=== PATIENT | female | born 1945 | race Caucasian/White ===

== ENCOUNTER 2019-11-01 05:47 | Inpatient (IN) ==
--- NOTE | 2019-10-17 09:23 | PAT Medication Instructions ---
Medication Instructions Date of Service October 17, 2019 Home Medications amlodipine [Norvasc] 25 mg PO QAM aspirin 325 mg PO HS atorvastatin [Lipitor] 40 mg PO QAM bupropion HCl [Wellbutrin XL] 150 mg PO QAM carvedilol phosphate [Coreg CR] 10 mg PO QAM clopidogrel [Plavix] 75 mg PO QAM esomeprazole magnesium [Nexium] 40 mg PO QPM glipizide [Glucotrol XL] 5 mg PO QAM isosorbide mononitrate 30 mg PO QAM lorazepam 1 mg PO UD PRN metformin 1,000 mg PO BID sitagliptin [Januvia] 100 mg PO QAM valsartan-hydrochlorothiazide [Diovan HCT] 1 tab PO QAM ASK your prescriber and surgeon aspirin 325 mg PO HS clopidogrel [Plavix] 75 mg PO QAM DO NOT take the morning of surgery glipizide [Glucotrol XL] 5 mg PO QAM metformin 1,000 mg PO BID sitagliptin [Januvia] 100 mg PO QAM valsartan-hydrochlorothiazide [Diovan HCT] 1 tab PO QAM Take morning of surgery With a small sip of water, OTHERWISE NOTHING TO EAT OR DRINK AFTER MIDNIGHT: amlodipine [Norvasc] 25 mg PO QAM atorvastatin [Lipitor] 40 mg PO QAM bupropion HCl [Wellbutrin XL] 150 mg PO QAM carvedilol phosphate [Coreg CR] 10 mg PO QAM isosorbide mononitrate 30 mg PO QAM lorazepam 1 mg PO UD PRN (if needed) Take evening before surgery esomeprazole magnesium [Nexium] 40 mg PO QPM lorazepam 1 mg PO UD PRN (if needed) metformin 1,000 mg PO BID Other Notes If you have any questions please call us at [phone] or [phone] or [phone] or [phone]
--- NOTE | 2019-10-17 12:02 | Anesthesiology Consultation ---
Date of Service October 17, 2019 Assessment & Plan (1) Encounter for pre-operative examination: - New onset a. fib: per patient, new onset a. fib diagnosed at cardiology appointment 10/16/19. Plavix was discontinued and Eliquis 5mg BID initiated. She states that cardiology has arranged for stress echo and holter monitor to be done prior to surgery. Awaiting cardiology office visit and EKG (Dr. Ascencio). Also awaiting stress echo and holter monitor scheduled for 10/22. Once cardiac testing completed, will need final cardiology preop recommendations. - ASA/plavix instructions: per surgeon/cardiology - Check [facility] AM DOS Chart Review Chart Review: Patient seen in Pre Admission Testing Teaching & Discussion Pre-Anesthesia Teaching/Discussion Notes: Instructed NPO after midnight before surgery,except medications with 15 cc of water. Medication instructions pro vided according to the PAT guidelines. History Surgery Operation Date: 11/01/19 07:45 Proposed Procedures p L4-S1 Decompression and Fusion, Spinal Cord Monitoring - Tavon Booth, Height/Weight Height: 5 ft 3 in Weight: 114.5 kg Allergies Allergy/AdvReac Type Severity Reaction Status Date / Time paroxetine [From Paxil] Allergy Unknown TREMORS Verified 10/10/19 10:36 Medications Home Medications Medication Instructions Recorded Confirmed Last Taken amlodipine [Norvasc] 25 mg PO QAM 10/10/19 10/10/19 Unknown aspirin 325 mg PO HS 10/10/19 10/10/19 Unknown atorvastatin [Lipitor] 40 mg PO QAM 10/10/19 10/10/19 Unknown bupropion HCl [Wellbutrin XL] 150 mg PO QAM 10/10/19 10/10/19 Unknown carvedilol phosphate [Coreg CR] 10 mg PO QAM 10/10/19 10/10/19 Unknown esomeprazole magnesium [Nexium] 40 mg PO QPM 10/10/19 10/10/19 Unknown glipizide [Glucotrol XL] 5 mg PO QAM 10/10/19 10/10/19 Unknown isosorbide mononitrate 30 mg PO QAM 10/10/19 10/10/19 Unknown lorazepam 1 mg PO UD PRN 10/10/19 10/10/19 Unknown metformin 1,000 mg PO BID 10/10/19 10/10/19 Unknown sitagliptin [Januvia] 100 mg PO QAM 10/10/19 10/10/19 Unknown valsartan-hydrochlorothiazide 1 tab PO QAM 10/10/19 10/10/19 Unknown [Diovan HCT] apixaban [Eliquis] 5 mg PO BID 10/17/19 10/17/19 Unknown Past Medical History Medical History (Updated 10/17/19 @ 14:13 by Leilani Smith) Acid reflux Anemia Anxiety Atrial fibrillation recent dx 09/2019 CAD (coronary artery disease) stent x 1 (2011) Diabetes Herniated disc History of blood clots following x2 (LEs) HTN (hypertension) Hyperlipidemia Morbid obesity Sleep apnea CPAP Spinal stenosis Exercise / Class Metabolic Activity III < 4 Walking/Shop/Light housework Past Surgical History Surgical History History of arthroscopy of left knee History of arthroscopy of left shoulder History of arthroscopy of right knee History of arthroscopy of right shoulder History of cardiac cath stent x1 (2011) History of cholecystectomy History of colonoscopy History of hysterectomy History of open reduction and internal fixation (ORIF) procedure R ANKLE (?SUBSEQUENT HARDWARE REMOVAL) Past Anesthesia History No Hx of Anesthesia Complications and No Family Hx of Anesthesia Complications History of PONV No Hx of PONV and No Hx of Motion Sickness Social History Smoking Status: Never smoker Do You Dip or Chew Tobacco: No Hx Alcohol Use: No Hx Substance Use: No substance use type: does not use Review of Systems Patient denies chest pain, shortness of breath, cough, wheezing, palpitations. Physical Exam Vital Signs VITALS BP 113/74 P 87 TEMP 97.9 SP02 95%RA RESP 16 PHYSICAL Full neck and c-spine range of motion. Full TMJ range of motion. TMD 3 finger breaths Mallampati Score 2 Dentition: full upper plate Lungs: clear throughout to auscultation Cardiac: regular rate, irregular rhythm, I/ systolic murmur, distant heart sounds Spine: kyphosis Carotid arteries: negative bruit Extremities: no edema Testing Laboratory Results 10/17/19 12:28 10/17/19 12:28 PT 11.5 Seconds (9.0-12.0) 10/17/19 12:28 INR 1.1 (0.9-1.1) 10/17/19 12:28 APTT 27.3 Seconds (21.0-31.0) 10/17/19 12:28 Hemoglobin A1c 7.4 % (4.5-5.6) H 10/17/19 12: Urine Color Yellow 10/17/19 12: Urine Appearance Clear (Clear) 10/17/19 12: Urine pH 5.0 (4.5-7.5) 10/17/19 12: Ur Specific [place] 1.013 (1.000-1.030) 10/17/19 12: Urine Protein Negative (Negative) 10/17/19 12: Urine Glucose (UA) Negative (Negative) 10/17/19 12: Urine Ketones Negative (Negative) 10/17/19 12: Urine Nitrite Negative (Negative) 10/17/19 12: Ur Leukocyte Esterase Negative (Negative) 10/17/19 12:28 Blood Type A Positive 10/17/19 12: Antibody Screen POSITIVE A 10/17/19 12: *Positive antibodies- per Katia at blood bank (aware/don't need anything further from PAT) Chest X-Ray Date: 10/17/19 The heart is enlarged noting atherosclerotic calcification of the thoracic aorta. The pulmonary vasculature is noncongested. Chronic interstitial thickening is similar to previous. Scarring/atelectasis is noted at the lung bases. Degenerative change, DISH, and hyperkyphosis are noted in the thoracic spine. IMPRESSION: Cardiomegaly with no active disease in the chest.
--- NOTE | 2019-10-17 12:58 | XRay Report ---
TWO VIEW CHEST CLINICAL HISTORY: Preoperative examination. FINDINGS: PA and lateral chest radiographs are obtained. No prior studies are available for compariso n at the time of dictation. The heart is enlarged noting atherosclerotic calcification of the thoraci c aorta. The pulmonary vasculature is noncongested. Chronic interstitial thickening is similar to pre vious. Scarring/atelectasis is noted at the lung bases. No airspace consolidation or pleural effusion is identified. There is no pneumothorax. The skeletal structures are osteopenic. The bony thorax viviana ears intact. Degenerative change, DISH, and hyperkyphosis are noted in the thoracic spine IMPRESSION: Cardiomegaly with no active disease in the chest. ACT 112: Negative or not required by law. Electronically signed by: Ghanshyam Woo M.D. 10/17/2019 12:57 PM
[2019-10-17 13:26] LABS: Appearance Urine Clear (Clear); Bilirubin Urine Negative (Negative); Blood Urine Negative (Negative); Color Urine Yellow; Glucose Urine UA Negative (Negative); Ketones Urine Negative (Negative); Leukocyte Esterase Urine Negative (Negative); Nitrite Urine Negative (Negative); Protein Urine Negative (Negative); Specific Gravity Urine 1.013 (1.000-1.030); Urobilinogen Urine Negative (Negative)
[2019-10-17 13:29] LABS: Basophils # (auto) 0.02 K/uL (0-0.2); Basophils % (auto) 0.3 %; Eosinophils # (auto) 0.12 K/uL (0-0.5); Eosinophils % (auto) 1.8 %; Hematocrit (blood only) 34.1 % (37-47); Immature Granulocytes # (auto) 0.02 K/uL (0.00-0.02); Immature Granulocytes % (auto) 0.3 %; Lymphocytes % (auto) 27.7 %; Mean Corpuscular Hemoglobin 28.3 pg (25-34); Mean Corpuscular Hgb Conc 32.3 g/dL (32-36); Mean Corpuscular Volume 87.7 fL (80-100); Mean Platelet Volume 11.8 fL (7.4-10.4); Monocytes # (auto) 0.55 K/uL (0.11-0.59); Monocytes % (auto) 8.5 %; Neutrophils # (auto) 3.98 K/uL (1.4-6.5); Neutrophils % (auto) 61.4 %; Platelet Count 253 K/uL (130-400); RDW Coefficient of Variation 14.8 % (11.5-14.5); RDW Standard Deviation 47.3 fL (36.4-46.3); Red Blood Count 3.89 M/uL (4.2-5.4); White Blood Count 6.49 K/uL (4.8-10.8)
[2019-10-17 13:35] LABS: BUN Creatinine Ratio 15.2 (10-20); Calcium 9.3 mg/dl (8.5-10.1); Creatinine Clr Calc Pharmacy 52.8 ml/min; Est GFR (African American) 54.9; Est GFR (Non-African American) 47.3; Potassium 4.1 mmol/L (3.5-5.1)
[2019-10-17 13:38] LABS: INR 1.1 (0.9-1.1); Partial Thromboplastin Time 27.3 Seconds (21.0-31.0); Prothrombin Time 11.5 Seconds (9.0-12.0)
[2019-10-17 14:01] LABS: Estimated Average Glucose 166 mg/dl; Hemoglobin A1C 7.4 % (4.5-5.6)
[2019-11-01] MEDS ORDERED: LR 15ML/HR IV SCH (06:00)
[2019-11-01] MEDS ORDERED: CEFAZOLIN 2000MG 2,000 MG/15 ML SYR IV SCH (06:00)
[2019-11-01] MEDS ORDERED: GABAPENTIN 300 MG CAP PO SCH (06:00)
[2019-11-01] MEDS ORDERED: CeleBREX 200 MG CAP PO SCH (06:00)
[2019-11-01] MEDS ORDERED: ACETAMINOPHEN 500 MG TAB PO SCH (06:00)
[2019-11-01] MEDS ORDERED: BUPIVACAINE/EPINEPHRINE 0.5% MPF 1:200,000 10 ML VIAL ONE (07:10)
[2019-11-01] MEDS ORDERED: BACITRACIN INJ 50,000 UNIT VIAL ONE (07:10)
[2019-11-01] MEDS ORDERED: fentaNYL citrate 100 MCG/2 ML VIAL ONE ×2 (07:14→10:06)
[2019-11-01] MEDS ORDERED: HYDROmorphone INJ 2 MG/ML SYR/VIAL ONE (07:15)
--- NOTE | 2019-11-01 07:16 | History & Physical Bridge Note ---
Date of Service November 01, 2019 History & Physical Bridge Note I have examined the patient, reviewed the History & Physical and in the interval since the performance of the History & Physical I have noted the following changes of clinical significance: no changes noted
--- NOTE | 2019-11-01 07:17 | History & Physical Report ---
Date of Service November 01, 2019 Assessment & Plan (1) Neurogenic claudication due to lumbar spinal stenosis: L4-S1 decompression fusion Present on Admission?: Yes History of Present Illness Chief Complaint: Back and bilateral leg pain Primary Care Provider: Jessica Gaming MD This is a 74-year-old female presents with chronic persistent back and bilateral leg pain. After failing extensive course of nonoperative care she is here for surgical invention. Allergies Allergy/AdvReac Type Severity Reaction Status Date / Time paroxetine [From Paxil] Allergy Unknown TREMORS Verified 11/01/19 06:38 Home Medications Home Medications Medication Instructions Recorded Confirmed Type amlodipine [Norvasc] 25 mg PO QAM 10/10/19 11/01/19 History aspirin 325 mg PO HS 10/10/19 11/01/19 History atorvastatin [Lipitor] 40 mg PO QAM 10/10/19 11/01/19 History bupropion HCl [Wellbutrin XL] 150 mg PO QAM 10/10/19 11/01/19 History carvedilol phosphate [Coreg CR] 10 mg PO QAM 10/10/19 11/01/19 History esomeprazole magnesium [Nexium] 40 mg PO QPM 10/10/19 11/01/19 History glipizide [Glucotrol XL] 5 mg PO QAM 10/10/19 11/01/19 History isosorbide mononitrate 30 mg PO QAM 10/10/19 11/01/19 History lorazepam 0.5 mg PO UD PRN 10/10/19 11/01/19 History metformin 1,000 mg PO BID 10/10/19 11/01/19 History sitagliptin [Januvia] 100 mg PO QAM 10/10/19 11/01/19 History valsartan-hydrochlorothiazide 1 tab PO QAM 10/10/19 11/01/19 History [Diovan HCT] apixaban [Eliquis] 5 mg PO BID 10/17/19 11/01/19 History ranolazine [Ranexa] 500 mg PO BID 11/01/19 11/01/19 History Past Med/Surg History Social History Preferred Language: Sinhala Communication Ability: Effective Food Beverage Server Required: No Beliefs That Will Affect Care: None Current Living Situation: Spouse Other Information That Helps Us Care for You: No Feels Safe at Home: Yes Smoking Status: Never smoker Do You Dip or Chew Tobacco: No ; Hx Alcohol Use: No Hx Substance Use: No Physical Exam Physical Exam: Patient is alert and oriented neurologically intact. Results & Data Vital Signs (Past 12 Hours) Vital Signs Temp Pulse Resp BP Pulse Ox 11/01/19 06:59 36.9 C 86 18 140/74 96
[2019-11-01] MEDS ORDERED: ALBUMIN HUMAN 5% 12.5 GM/250 ML VIAL IV ONE ×2 (07:22→09:07)
[2019-11-01] MEDS ORDERED: ONDANSETRON INJ 2 MG/ML 2 ML VIAL ONE (08:22)
[2019-11-01] MEDS ORDERED: ROCURONIUM BROMIDE 10 MG/ML 5 ML VIAL ONE (08:22)
[2019-11-01] MEDS ORDERED: ePHEDrine sulfate 50 MG/ML SYR ONE (08:22)
[2019-11-01] MEDS ORDERED: DEXAMETHASONE SOD INJ 4 MG/ML VIAL ONE (08:22)
[2019-11-01] MEDS ORDERED: NEOSTIGMINE METHYLSULFATE 1 MG/ML 10ML VIAL ONE (08:22)
[2019-11-01] MEDS ORDERED: PROPOFOL IV EMULSION 10 MG/ML 20 ML VIAL IV ONE (08:22)
[2019-11-01] MEDS ORDERED: LIDOCAINE HCL 2% 2 ML VIAL/AMP(20MG/ML) INFIL ONE (08:22)
[2019-11-01] MEDS ORDERED: GLYCOPYRROLATE 0.2 MG/ML VIAL ONE (08:22)
[2019-11-01] MEDS ORDERED: LARYING-O-JET KIT (LTA) ONE (08:22)
[2019-11-01] MEDS ORDERED: PHENYLEPHRINE 100MCG/ML 5ML SYR ONE (08:22)
[2019-11-01] MEDS ORDERED: FLOSEAL HEMOSTATIC MATRIX 10ML TOP ONE (08:35)
[2019-11-01] MEDS ORDERED: PHENYLEPHRINE HCL 10 MG/ML VIAL ONE (08:37)
[2019-11-01] MEDS ORDERED: HYDROmorphone INJ 1 MG/ML SYRINGE IV PRN ×2 (09:29→12:12)
[2019-11-01] MEDS ORDERED: ATROPINE SULFATE 0.1 MG/ML 10ML SYR IV PRN (09:29)
[2019-11-01] MEDS ORDERED: FLUMAZENIL 0.1 MG/1 ML 10 ML VIAL IV PRN (09:29)
[2019-11-01] MEDS ORDERED: PROMETHAZINE HCL 12.5 MG in SODIUM CHLORIDE 0.9% 50 ML IV PRN ×2 (09:29→12:12)
[2019-11-01] MEDS ORDERED: ONDANSETRON INJ 2 MG/ML 2 ML VIAL IV PRN ×2 (09:29→12:12)
[2019-11-01] MEDS ORDERED: LABETALOL HCL IV 5 MG/ML 20ML IV PRN (09:29)
[2019-11-01] MEDS ORDERED: fentaNYL citrate 100 MCG/2 ML VIAL IV PRN (09:29)
[2019-11-01] MEDS ORDERED: ePHEDrine sulfate 50 MG/ML AMP IV PRN (09:29)
[2019-11-01] MEDS ORDERED: NALOXONE HCL 0.4 MG/1 ML VIAL/CARP IV PRN ×2 (09:29→12:12)
--- NOTE | 2019-11-01 10:25 | Operative Report ---
Post Operative Report Pre & Post Diagnosis Operation Date: 11/01/19 07:45 Pre-Op Diagnosis: Lumbar Spinal Stenosis with Neurogenic Claudication Spondylolisthesis L4-5. Morbid obesity. Post-Op Diagnosis: Same I identified the patient and participated in the time-out.: Yes Procedure Operation Date: 11/01/19 07:45 Actual Procedures #1 lumbar decompression bilateral medial facetectomies foraminotomies L3-4, L4- 5, L5-S1. #2 posterior spinal fusion L4-5 L5-S1. #3 placement posterior instrumentation L4-5 L5-S1. #4 interbody fusion L 4 5 L5-S1. #5 placement of peek cage 12 x 22 mm at L4-5 and L5-S1. #6 placement locally harvested morselized autograft in the posterior lateral gutters. #7 placement infuse collagen sponge, master graft in the posterior gutters and ostial amp and interbody space. Surgeon Tavon Booth, DO Biscuit Maker Matthew Mota Estimated Blood Loss 750 Findings See Below The patient is 5 foot 2 inches tall weighing over 115 kg with a BMI in excess of 46. The patient's body habitus did add significant technical difficulty requiring our deepest retractors and longus instruments in order to perform her procedure. She also require increased attention for follow-up and postoperative care in light of her body habitus and any wound issues. This added at least 50% increase to the operative time. Specimens None Indications This is a 74-year-old female presents with above-mentioned diagnosis after failed extensive course of nonoperative care she is here for the above-mentioned procedure. Description of Procedure Patient was met with identified informed consent obtained. Patient was then taken to the operative suite underwent an patient placed prone position Kapil table top Joaquin frame. All bony prominences well-padded eyes inspected to ensure no external pressure placed upon the. This point the lumbar spine was prepped and draped in normal sterile fashion. Sharp dissection with assistance of Bovie guard is performed to and exposing the lamina and transverse processes of for L5 and sacral ala bilaterally. From caudal cephalad fashion complete laminectomy of L5 L4 and partial laminectomy L3 was performed including bilateral medial facetectomies foraminotomies addressing severe spinal stenosis. Pedicle screws then placed in L4-L5 and S1 levels bilaterally with assistance of fluoroscopy the purposes daquan placed. Bilateral transforaminal portion left complete discectomy of L5-S1 was performed endplates curetted to subcortical being bone and a 12 x 22 mm peek cage filled with osteo-bone graft tapped in position. Then proceeded L4-[address] of a transforaminal portion left complete discectomy performed endplates curetted to subcortical and bone and again a 12 x 22 mm peek cage with osteo-bone graft tapped in position. The rods are compressed locked in final position bilaterally. The transverse processes of L for L5 and sacral ala burred to subcortical bleeding bone. Infuse collagen sponge master graft local autograft placed in the posterior gutters. 15 round ESCOBAR drain inserted. Incision was then closed with 1 Vicryl fascia 2-0 Vicryl subcutaneously and 4 Monocryl for final skin closure. Steri-Strip sterile dressing placed. Patient will continue PACU stable disc replacement medical record was present at the entire procedure involved in patient positioning complex portions of the surgery and final skin closure. Lastly spinal cord monitoring was utilized that the procedure no changes noted. I attest to the content of the Intraoperative Record and any orders documented therein. Any exceptions are noted below.
--- NOTE | 2019-11-01 10:27 | Fluoroscopy Report ---
FL lumbar spine 2-3V CLINICAL HISTORY: L4-S1 DECOMP/FUSION COMPARISON STUDY: None. FLUOROSCOPY TIME: 20 seconds. FLUOROSCOPIC IMAGES: 2 FINDINGS: These images demonstrate L4-L5 and L5-S1 discectomies with interbody spacer placement. Post erior decompression is noted. There are bilateral pedicles is at the L4, L5 and S1 levels with interc onnecting rods. IMPRESSION: Fluoroscopy provided for L4-L5 and L5-S1 discectomies with posterior decompression and b ilateral pedicle fusion. ACT 112: Negative or not required by law. Results electronically sent 11/01/2019 10:25 AM to: Tavon Booth DO Electronically signed by: Carter Larsen M.D. 11/01/2019 10:25 AM
[2019-11-01 11:21] LABS: Hematocrit (blood only) 28.7 % (37-47); Hemoglobin 9.1 g/dL (12.0-16.0)
--- NOTE | 2019-11-01 11:32 | Anesthesiology Progress Note ---
Date of Service November 01, 2019 Anesthesia Post Procedure Vital Signs Vital Signs: Temp Pulse Pulse Resp BP Pulse Ox 11/01/19 11:20 77 18 132/61 96 11/01/19 11:10 91 H 18 144/66 H 96 11/01/19 11:00 84 17 150/79 H 99 11/01/19 10:50 89 20 142/77 H 98 11/01/19 10:44 36.6 C 88 16 146/78 H 96 11/01/19 06:59 36.9 C 86 18 140/74 96 Pain Intensity Lower Back: Pain Intensity: 5 Transfer of Care Handoff Completed per policy Notes Mental Status: alert / awake / arousable Patient Amnestic to Procedure: Yes Nausea / Vomiting: adequately controlled Pain: adequately controlled Airway Patency, RR, SpO2: stable & adequate BP & HR: stable & adequate Hydration State: stable & adequate Anesthetic Complications: no major complications apparent
[2019-11-01] MEDS ORDERED: MAGNESIUM HYDROXIDE SUSP 30 ML UDC PO PRN (12:12)
[2019-11-01] MEDS ORDERED: DO NOT ADMINISTER PNEUMOCOCCAL VACCINE PRN (12:12)
[2019-11-01] MEDS ORDERED: METOCLOPRAMIDE HCL INJ 5 MG/ML 2 ML VIAL IV PRN (12:12)
[2019-11-01] MEDS ORDERED: ACETAMINOPHEN 1,000 MG/100 ML VIAL IV PRN (12:12)
[2019-11-01] MEDS ORDERED: bisacodyL 10 MG SUPP PR PRN (12:12)
[2019-11-01] MEDS ORDERED: DO NOT ADMINISTER FLU VACCINE PRN (12:12)
[2019-11-01] MEDS ORDERED: ONDANSETRON 4 MG OD TAB PO PRN (12:12)
[2019-11-01] MEDS ORDERED: FAMOTIDINE 20 MG TAB PO PRN (12:12)
[2019-11-01] MEDS ORDERED: ALUMINUM/MAGNESIUM SUSP 30 ML UDC PO PRN (12:12)
[2019-11-01] MEDS ORDERED: SOD PHOSPHATE/SOD BIPHOSPHATE ENEMA 132 ML BTL PR PRN (12:12)
[2019-11-01] MEDS ORDERED: LORazepam 0.5 MG/1 ML VIAL IV PRN (12:12)
[2019-11-01] MEDS ORDERED: HYDROmorphone INJ 0.5 MG/0.5 ML SYR IV PRN (12:12)
[2019-11-01] MEDS ORDERED: GLUCOSE 10 TABS/TUBE PO PRN (13:37)
[2019-11-01] MEDS ORDERED: CARBOHYDRATES FOR HYPOGLYCEMIA PO PRN (13:37)
[2019-11-01] MEDS: OXYCODONE HCL IR 5 MG TAB (IMMEDIATE RELEASE) PO PRN ×3 (13:37→22:25)
[2019-11-01] MEDS ORDERED: GLUCOSE 40% GEL 15 GM TUBE PO PRN (13:37)
[2019-11-01] MEDS ORDERED: DEXTROSE 50% 50 ML SYRINGE IV PRN (13:37)
[2019-11-01] MEDS ORDERED: GLUCAGON FOR INJ 1 MG VIAL SQ PRN (13:37)
[2019-11-01] MEDS ORDERED: NovoLIN-N (NPH) PER UNIT CHARGE SC ONE ×2 (13:45)
--- NOTE | 2019-11-01 13:58 | Hospitalist Consultation ---
Date of Consultation November 01, 2019 Assessment & Plan (1) Neurogenic claudication due to lumbar spinal stenosis: - POD#0 L4-S1 decompression and fusion by Dr. Booth - activity and wound care orders as per ortho - pain control with bowel regimen - PT/OT - monitor H/H for acute blood loss anemia and transfuse blood products PRN - EBL 750 cc (2) Atrial fibrillation: -Heart auscultates to regular rhythm on exam -Rate controlled on beta-saima, will continue -Anticoagulated on apixaban which has been on hold for 5 days preoperatively, resume when cleared by spine orthopedics (3) DM type 2 (diabetes mellitus, type 2): -Hgb A1c 7.4 09/2019 -Hold oral agents -will give 1 dose of NPH to cover for IV dexamethasone received in the OR -NovoLog per protocol (4) HTN (hypertension): -BP controlled, continue amlodipine, isosorbide, carvedilol, valsartan/HCTZ (5) CAD (coronary artery disease): -Appears stable -Continue aspirin (cleared by spine orthopedics), statin, beta-saima, ARB, nitrate, Ranexa (6) Sleep apnea: -CPAP as per home settings (7) Acid reflux: -Continue PPI (8) DVT prophylaxis: -Teds/SCDs as per spine orthopedics Thank you for this consultation. We will follow the patient with you during their hospital stay. You can reach a member of the [facility] Hospitalist Team 20/03 via pager @ [phone]. Supervising Physician Co-Signing Physician Notes Attending addendum The patient was seen and examined in the medical floor She is obese and is status post lumbar spine fusion and decompression Complains some pain at the back but denies any associated symptoms Denies any other symptoms on systemic inquiry On examination Lying in bed comfortably Hemodynamically stable Chest-decreased breath sounds otherwise clear bilaterally Heart-S1-S2, regular Abdomen-distended, soft, bowel sounds present Extremities- trace edema bilaterally- CALL CENTER COORDINATOR-alert, awake and oriented x3 Her labs and imaging studies reviewed Status post lumbar decompression fusion, POD #0 with history of atrial fibrillation, CAD, type 2 diabetes and hypertension Medically stable Agree with assessment and plan as outlined above by Jerri Cooley History of Present Illness Reason for Consultation: Postop medical management Requesting Physician: Dr. Booth Attending Physician: Dr. Cooley History of Present Illness 74-year-old female who is status post L4-S1 decompression and fusion today with Dr. Booth. Postoperatively, the patient is doing well. She reports her pain is well controlled. She reports feeling sleepy. Denies chest pain shortness of breath. No lightheadedness or dizziness. Has some mild nausea but denies abdominal pain and vomiting. Denies numbness and tingling to lower extremities. Suresh catheter is in place draining clear yellow urine. Allergies Allergy/AdvReac Type Severity Reaction Status Date / Time paroxetine [From Paxil] Allergy Unknown TREMORS Verified 11/01/19 06:38 Home Medications Home Medications Medication Instructions Recorded Confirmed Type amlodipine [Norvasc] 25 mg PO QAM 10/10/19 11/01/19 History aspirin 325 mg PO HS 10/10/19 11/01/19 History atorvastatin [Lipitor] 40 mg PO QAM 10/10/19 11/01/19 History bupropion HCl [Wellbutrin XL] 150 mg PO QAM 10/10/19 11/01/19 History carvedilol phosphate [Coreg CR] 10 mg PO QAM 10/10/19 11/01/19 History esomeprazole magnesium [Nexium] 40 mg PO QPM 10/10/19 11/01/19 History glipizide [Glucotrol XL] 5 mg PO QAM 10/10/19 11/01/19 History isosorbide mononitrate 30 mg PO QAM 10/10/19 11/01/19 History lorazepam 0.5 mg PO UD PRN 10/10/19 11/01/19 History metformin 1,000 mg PO BID 10/10/19 11/01/19 History sitagliptin [Januvia] 100 mg PO QAM 10/10/19 11/01/19 History valsartan-hydrochlorothiazide 1 tab PO QAM 10/10/19 11/01/19 History [Diovan HCT] apixaban [Eliquis] 5 mg PO BID 10/17/19 11/01/19 History ranolazine [Ranexa] 500 mg PO BID 11/01/19 11/01/19 History Patient History Medical History Acid reflux Anemia Anxiety Atrial fibrillation recent dx 09/2019 CAD (coronary artery disease) stent x 1 (2011) Diabetes Herniated disc History of blood clots following x2 (LE's) HTN (hypertension) Hyperlipidemia Morbid obesity Sleep apnea CPAP Spinal stenosis Surgical History History of arthroscopy of left knee History of arthroscopy of left shoulder History of arthroscopy of right knee History of arthroscopy of right shoulder History of cardiac cath stent x1 (2011) History of cholecystectomy History of colonoscopy History of hysterectomy History of open reduction and internal fixation (ORIF) procedure R ANKLE (?SUBSEQUENT HARDWARE REMOVAL) Social History Preferred Language: Mozambican Communication Ability: Effective Polisher Dial Required: No Beliefs That Will Affect Care: None Current Living Situation: Spouse Other Information That Helps Us Care for You: No Feels Safe at Home: Yes Smoking Status: Never smoker Do You Dip or Chew Tobacco: No ; Hx Alcohol Use: No Hx Substance Use: No Review of Systems Review of Systems: ROS per HPI, all other systems reviewed and negative Physical Exam Constitutional: WD/WN, vitals as above + obese Eyes: PERRL, conjunctivae normal, anicteric sclerae ENMT: external ear and nose normal, oropharynx normal Respiratory: normal respiratory effort, lungs clear to auscultation Cardiovascular: Rate/Rhythm: regular rate and regular rhythm Vessels: normal peripheral pulses Extremities: no edema Gastrointestinal (Abdomen): normal bowel sounds, soft, nontender, no hepatosplenomegaly Musculoskeletal: no cyanosis or clubbing, extremities motor strength 5/5 S/p back surgery, pedal pushes and pulls strong bilaterally, drain in place d raining bloody drainage Skin: no rashes, warm and dry Neurologic: PERRL, EOMI, accommodation nl, no face palsy, no dysarthria Psychiatric: A+Ox3, euthymic affect Results & Data ([facility]) Vital Signs (Past 12 Hours) Vital Signs Temp Pulse Pulse Resp BP Pulse Ox 11/01/19 13:09 78 16 125/54 L 98 11/01/19 12:42 77 16 128/63 97 11/01/19 12:14 36.4 C L 16 122/72 98 11/01/19 11:50 71 15 119/64 97 11/01/19 11:40 36.7 C 83 16 113/65 96 11/01/19 11:30 79 20 131/61 96 11/01/19 11:20 77 18 132/61 96 11/01/19 11:10 91 H 18 144/66 H 96 11/01/19 11:00 84 17 150/79 H 99 11/01/19 10:50 89 20 142/77 H 98 11/01/19 10:44 36.6 C 88 16 146/78 H 96 11/01/19 06:59 36.9 C 86 18 140/74 96
[2019-11-01] MEDS: SODIUM CHLORIDE 0.9% 1000ML 1,000 ML IV SCH ×2 (15:04→21:31)
[2019-11-01] MEDS: CEFAZOLIN 2000MG 2,000 MG/15 ML SYR IV SCH ×2 (16:08→23:41)
[2019-11-01] MEDS: INSULIN ASPART 100 UNITS/ML 3 ML PEN SC SCH ×2 (18:10→21:33)
[2019-11-01] MEDS: DOCUSATE SODIUM/SENNA 50/8.6MG TAB PO SCH (21:35)
[2019-11-01] MEDS: RANOLAZINE 500 MG ER TAB PO SCH (21:35)
[2019-11-01] MEDS: ASPIRIN 325 MG ECTAB PO SCH (21:35)
[2019-11-01] MEDS: PANTOprazole 40 MG TAB PO SCH (21:36)
[2019-11-01] MEDS: ACETAMINOPHEN 500 MG TAB PO PRN (22:24)
[2019-11-02] MEDS: OXYCODONE HCL IR 5 MG TAB (IMMEDIATE RELEASE) PO PRN ×4 (03:22→19:09)
[2019-11-02] MEDS: SODIUM CHLORIDE 0.9% 1000ML 1,000 ML IV SCH (03:27)
[2019-11-02] MEDS: POLYETHYLENE (MIRALAX) 17 GM PACK PO SCH ×4 (05:20→23:27)
[2019-11-02 06:56] LABS: Basophils # (auto) 0.01 K/uL (0-0.2); Basophils % (auto) 0.1 %; Hematocrit (blood only) 25.7 % (37-47); Hemoglobin 8.2 g/dL (12.0-16.0); Immature Granulocytes # (auto) 0.04 K/uL (0.00-0.02); Immature Granulocytes % (auto) 0.3 %; Lymphocytes # (auto) 1.28 K/uL (1.2-3.4); Lymphocytes % (auto) 10.7 %; Mean Corpuscular Hemoglobin 27.8 pg (25-34); Mean Corpuscular Hgb Conc 31.9 g/dL (32-36); Mean Corpuscular Volume 87.1 fL (80-100); Mean Platelet Volume 12.2 fL (7.4-10.4); Monocytes # (auto) 1.11 K/uL (0.11-0.59); Monocytes % (auto) 9.3 %; Neutrophils # (auto) 9.53 K/uL (1.4-6.5); Neutrophils % (auto) 79.6 %; Platelet Count 240 K/uL (130-400); RDW Coefficient of Variation 14.6 % (11.5-14.5); RDW Standard Deviation 45.9 fL (36.4-46.3); Red Blood Count 2.95 M/uL (4.2-5.4); White Blood Count 11.97 K/uL (4.8-10.8)
[2019-11-02 07:26] LABS: BUN Creatinine Ratio 11.7 (10-20); Calcium 8.3 mg/dl (8.5-10.1); Creatinine Clr Calc Pharmacy 51.7 ml/min; Est GFR (African American) 54.3; Est GFR (Non-African American) 46.8; Potassium 4.3 mmol/L (3.5-5.1)
--- NOTE | 2019-11-02 08:55 | Orthopedic Progress Note ---
Date of Service November 02, 2019 Assessment & Plan (1) Neurogenic claudication due to lumbar spinal stenosis: This time we will continue physical therapy monitor her ESCOBAR output anticipate discharge home in the next few days. Present on Admission?: Yes Admission and Anticipated Discharge Date Admission Date: November 01, 2019 Subjective Back pain is controlled leg symptoms markedly improved. Physical Exam Physical Exam: Patient is in a chair at the bedside is good strength testing. Appears comfortable. Results & Data ([facility]) Vital Signs (Past 12 Hours) Vital Signs Temp Pulse Resp BP Pulse Ox 11/02/19 07:54 36.5 C 76 20 91/59 L 95 11/02/19 03:10 36.5 C 74 16 114/71 93 11/01/19 23:05 36.4 C L 88 16 108/62 95
[2019-11-02] MEDS ORDERED: GLIPIZIDE 5 MG PO SCH (09:00)
[2019-11-02] MEDS ORDERED: IRBESARTAN 150 MG TAB PO SCH (09:00)
[2019-11-02] MEDS ORDERED: AMLODIPINE BESYLATE 5 MG TAB PO SCH (09:00)
[2019-11-02] MEDS ORDERED: SITAGLIPTIN PHOSPHATE 100 MG TAB PO SCH (09:00)
[2019-11-02] MEDS ORDERED: hydroCHLOROthiazide 25 MG TAB PO SCH (09:00)
[2019-11-02] MEDS: RANOLAZINE 500 MG ER TAB PO SCH ×2 (09:06→21:21)
[2019-11-02] MEDS: BuPROPion XL 150 MG TABCR PO SCH (09:07)
[2019-11-02] MEDS: ATORVASTATIN 40 MG TAB PO SCH (09:07)
[2019-11-02] MEDS: carvediloL 3.125 MG TAB PO SCH ×2 (09:08→21:22)
[2019-11-02] MEDS: ISOSORBIDE MONO EXTENDED REL 30 MG TABCR PO SCH (09:08)
[2019-11-02] MEDS: INSULIN ASPART 100 UNITS/ML 3 ML PEN SC SCH ×4 (09:14→21:16)
[2019-11-02] MEDS: LORazepam 0.5 MG TAB PO PRN (14:04)
--- NOTE | 2019-11-02 16:43 | Hospitalist Progress Note ---
Date of Service November 02, 2019 Assessment & Plan (1) Hypotension: Postoperative hypotension, hold irbesartan, HCTZ, and Norvasc. Coreg continued with holding parameters. Cont close monitoring of BP and plan for IVF bolus as needed if SBP<80 or if symtomatic/ (2) Anemia: Post-operative acute blood loss anemia. Slightly less than yesterday. No transfusion at this time. Cont to monitor with CBC in am. (3) Neurogenic claudication due to lumbar spinal stenosis: - POD#1 L4-S1 decompression and fusion by Dr. Booth - activity and wound care orders as per ortho - pain control with bowel regimen - PT/OT (4) Atrial fibrillation: Cont Coreg for now. Apixaban on hold until cleared by Cardiology to restart post-operatively (5) DM type 2 (diabetes mellitus, type 2): at goal, cont Novolog with carb coverage post-operatively with plan to transition back to oral agents on discharge. (6) CAD (coronary artery disease): -Continue aspirin (cleared by spine orthopedics), statin, beta-saima, nitrate, Ranexa. ARB on hold as above. (7) Sleep apnea: -CPAP qHS (8) DVT prophylaxis: -Teds/SCDs as per spine orthopedics Full Code Dispo-per Ortho Thank you for this consultation. We will follow the patient with you during their hospital stay. You can reach [facility] via pager @ [phone]. Kelli Marquez DO [facility] Ad[facility] and Anticipated Discharge Date Admission Date: November 01, 2019 Subjective Pt feeling well overall Pain is well managed with medications, however, the patient is reporting some generalized itchiness. She states she has taken oxycodone in the past and has had no issues with it. Review of Systems Review of Systems: All systems reviewed & are unremarkable except as noted in Subjective Physical Exam Physical Exam: CONSTITUTIONAL: obese, vitals as above, generally well- appearing EYES: normal conjunctivae, no scleral icterus ENT: external ear and nose normal, MMM RESPIRATORY: clear to auscultation bilaterally, no crackles, rales or wheezes, normal respiratory effort CARDIOVASCULAR: regular rate and rhythm, S1 and 2 heard without murmurs, gallops or rubs, no JVD, no peripheral edema GASTROINTESTINAL: soft, nontender, nondistended MUSCULOSKELETAL: strength 5/5 throughout, head is normocephalic and atraumatic SKIN: warm and dry, no rashes NEUROLOGIC: CN 2-12 grossly intact, no sensory deficit, normal cognition, no gross focal deficits. PSYCHIATRIC: alert cooperative and oriented Results & Data ([facility]) Vital Signs (Past 12 Hours) Vital Signs Temp Pulse Resp BP BP Pulse Ox 11/02/19 16:22 36.6 C 79 16 88/55 L 91 11/02/19 12:31 106/58 L 11/02/19 12:00 36.7 C 102 H 18 100/59 L 95 11/02/19 09:05 88 114/71 11/02/19 07:54 36.5 C 76 20 91/59 L 95 Laboratory Results Short CBC 11/02/19 Range/Units 06:22 WBC 11.97 H (4.8-10.8) K/uL Hgb 8.2 L (12.0-16.0) g/dL Hct 25.7 L (37-47) % Plt Count 240 (130-400) K/uL BMP 11/02/19 06:22 Sodium 139 Potassium 4.3 Chloride 107 Carbon Dioxide 28 BUN 13 Creatinine 1.15 Glucose 176 H Calcium 8.3 L Medications Administered Current Inpatient Medications Acetaminophen (Tylenol) 1,000 mg PO Q8H PRN PRN Reason: MILD Pain Scale 1,2,3 & Pre PT Stop: 12/01/19 12:11 Last Admin: 11/01/19 22:24 Dose: 1,000 mg Documented by: Al Hydrox/Mg Hydrox/Simethicone (Maalox) 30 ml PO Q6H PRN PRN Reason: Dyspepsia Stop: 12/01/19 12:11 Amlodipine [facility] ([facility]) [facility] Stop: 12/02/19 08:59 Last Admin: 11/02/19 09:08 Dose: 2.5 mg Documented by: Aspirin (Ecotrin) 325 mg PO [facility] Stop: 12/01/19 20:59 Last Admin: 11/01/19 21:35 Dose: 325 mg Documented by: Atorvastatin Calcium (Lipitor) 40 mg PO QAM [facility] Stop: 12/02/19 08:59 Last Admin: 11/02/19 09:07 Dose: 40 mg Documented by: Bisacodyl (Dulcolax) 10 mg IN DAILY PRN PRN Reason: Constipation Stop: 12/01/19 12:11 Bupropion HCl (Wellbutrin-Xl) 150 mg PO QAM [facility] Stop: 12/02/19 08:59 Last Admin: 11/02/19 09:07 Dose: 150 mg Documented by: Carvedilol (Coreg) 3.125 mg PO BID [facility] Stop: 12/02/19 08:59 Last Admin: 11/02/19 09:08 Dose: 3.125 mg Documented by: Dextrose (Dextrose 50%) 25 - 50 ml IV UD PRN; Protocol PRN Reason: Hypoglycemia Protocol Stop: 12/01/19 13:36 Diphenhydramine HCl (Benadryl Capsule) 25 mg PO Q6H PRN PRN Reason: itching Stop: 12/02/19 11:29 Last Admin: 11/02/19 11:32 Dose: 25 mg Documented by: Famotidine (Pepcid) 20 mg PO Q12H PRN PRN Reason: Dyspepsia Stop: 12/01/19 12:11 Glucagon (Glucagen) 1 mg SQ UD PRN; Protocol PRN Reason: Hypoglycemia Protocol Stop: 12/01/19 13:36 Glucose (Dex4 Glucose) 4 - 8 tabs PO UD PRN; Protocol PRN Reason: Hypoglycemia Protocol Stop: 12/01/19 13:36 Glucose (Glucose 40%) 15 - 30 gm PO UD PRN; Protocol PRN Reason: Hypoglycemia Protocol Stop: 12/01/19 13:36 Hydrochlorothiazide (Hctz) 12.5 mg PO DAILY [facility] Stop: 12/02/19 08:59 Last Admin: 11/02/19 09:07 Dose: 12.5 mg Documented by: Hydromorphone HCl (Dilaudid) 0.5 mg IV Q3H PRN PRN Reason: MOD pain (scale 4-6) & Pre PT Stop: 11/15/19 12:11 Hydromorphone HCl (Dilaudid) 1 mg IV Q3H PRN PRN Reason: severe pain (scale 7-10) Stop: 11/15/19 12:11 Hydroxyzine HCl (Vistaril) 25 mg PO Q8H PRN PRN Reason: Anxiety Stop: 12/01/19 12:11 Lorazepam (Ativan) 0.5 mg in 1 mls @ 0.5 mls/min IV Q8H PRN PRN Reason: Sedation/Anxiety Stop: 12/01/19 12:11 Promethazine HCl 12.5 mg/ (Sodium Chloride) 50.5 mls @ 204 mls/hr IV Q6H PRN PRN Reason: Nausea &/or Vomiting Stop: 12/01/19 12:11 Influenza Virus Vaccine Quadrival (Flu Vaccine, Do Not Administer) 1 ea N/A PRN PRN PRN Reason: Notification Stop: 12/01/19 12:11 Insulin Aspart (Novolog Flexpen) 0 units SC [facility] Stop: 12/01/19 16:29 Last Admin: 11/02/19 13:11 Dose: 4 units Documented by: Irbesartan (Avapro) 150 mg PO [facility] Stop: 12/02/19 08:59 Last Admin: 11/02/19 09:08 Dose: 150 mg Documented by: Isosorbide Mononitrate (Imdur Extended Rel) 30 mg PO [facility] Stop: 12/02/19 08:59 Last Admin: 11/02/19 09:08 Dose: 30 mg Documented by: Lorazepam (Ativan) 0.5 mg PO Q8H PRN PRN Reason: Sedation/Anxiety Stop: 12/01/19 12:11 Last Admin: 11/02/19 14:04 Dose: 0.5 mg Documented by: Magnesium Hydroxide (Milk Of Magnesia) 30 ml PO DAILY PRN PRN Reason: Constipation Stop: 12/01/19 12:11 Metoclopramide HCl (Reglan) 10 mg IV Q6H PRN PRN Reason: Nausea &/or Vomiting Stop: 12/01/19 12:11 Miscellaneous (Carbohydrates For Hypoglycemia) 15 - 30 gm PO UD PRN PRN Reason: Hypoglycemia Protocol Stop: 12/01/19 13:36 Naloxone HCl (Narcan) 0.1 mg IV Q5M PRN; Protocol PRN Reason: Oversedation/Resp Depression Stop: 12/01/19 12:11 Ondansetron HCl (Zofran) 4 mg IV Q6H PRN PRN Reason: Nausea &/or Vomiting Stop: 12/01/19 12:11 Last Admin: 11/01/19 13:37 Dose: 4 mg Documented by: Ondansetron HCl (Zofran Odt) 4 mg PO Q6H PRN PRN Reason: Nausea Stop: 12/01/19 12:11 Oxycodone HCl (Roxicodone Immediate Rel) 5 - 10 mg PO Q4H PRN PRN Reason: Moderate-Severe Pain & Pre PT Stop: 11/15/19 12:11 Last Admin: 11/02/19 09:18 Dose: 10 mg Documented by: Pantoprazole Sodium (Protonix) 40 mg PO QPM [facility] Stop: 12/01/19 20:59 Last Admin: 11/01/19 21:36 Dose: 40 mg Documented by: Pneumococcal Polyvalent Vaccine (Pneumococcal Vacc, Do Not Administer) 1 ea N/A PRN PRN PRN Reason: Notification Stop: 12/01/19 12:11 Polyethylene Glycol (Miralax Powder Packet) 17 gm PO Q6 [facility] Stop: 12/02/19 05:59 Last Admin: 11/02/19 12:43 Dose: 17 gm Documented by: Ranolazine (Ranexa) 500 mg PO BID [facility] Stop: 12/01/19 20:59 Last Admin: 11/02/19 09:06 Dose: 500 mg Documented by: Senna/Docusate Sodium (Senokot S) 2 tab PO HS [facility] Stop: 12/01/19 20:59 Last Admin: 11/01/19 21:35 Dose: 2 tab Documented by: Sodium Biphosphate/Sodium Phosphate (Fleet Enema) 132 ml IN ONE PRN PRN Reason: Constipation Stop: 12/01/19 12:11 Tramadol HCl (Ultram) 50 - 100 mg PO Q4H PRN PRN Reason: Moderate-Severe Pain & Pre PT Stop: 12/01/19 12:11
[2019-11-02] MEDS: TRAMADOL HCL 50 MG TABLET PO PRN ×2 (17:10→21:21)
[2019-11-02] MEDS: ACETAMINOPHEN 500 MG TAB PO PRN (17:11)
[2019-11-02] MEDS: DOCUSATE SODIUM/SENNA 50/8.6MG TAB PO SCH (17:20)
[2019-11-02] MEDS: ASPIRIN 325 MG ECTAB PO SCH (21:21)
[2019-11-02] MEDS: PANTOprazole 40 MG TAB PO SCH (21:21)
[2019-11-03] MEDS: POLYETHYLENE (MIRALAX) 17 GM PACK PO SCH ×4 (05:24→23:45)
[2019-11-03] MEDS: OXYCODONE HCL IR 5 MG TAB (IMMEDIATE RELEASE) PO PRN ×4 (05:48→20:34)
[2019-11-03 05:54] LABS: Hematocrit (blood only) 26.8 % (37-47); Hemoglobin 8.5 g/dL (12.0-16.0); Mean Corpuscular Hemoglobin 27.8 pg (25-34); Mean Corpuscular Hgb Conc 31.7 g/dL (32-36); Mean Corpuscular Volume 87.6 fL (80-100); Mean Platelet Volume 11.8 fL (7.4-10.4); Platelet Count 302 K/uL (130-400); RDW Coefficient of Variation 14.8 % (11.5-14.5); RDW Standard Deviation 47.2 fL (36.4-46.3); Red Blood Count 3.06 M/uL (4.2-5.4); White Blood Count 12.87 K/uL (4.8-10.8)
[2019-11-03 06:41] LABS: Calcium 8.7 mg/dl (8.5-10.1); Est GFR (African American) 49.6; Est GFR (Non-African American) 42.8; Potassium 3.6 mmol/L (3.5-5.1)
[2019-11-03] MEDS: RANOLAZINE 500 MG ER TAB PO SCH ×2 (08:37→20:15)
[2019-11-03] MEDS: carvediloL 3.125 MG TAB PO SCH ×2 (08:37→20:15)
[2019-11-03] MEDS: ISOSORBIDE MONO EXTENDED REL 30 MG TABCR PO SCH (08:38)
[2019-11-03] MEDS: BuPROPion XL 150 MG TABCR PO SCH (08:38)
[2019-11-03] MEDS: ATORVASTATIN 40 MG TAB PO SCH (08:38)
[2019-11-03] MEDS: INSULIN ASPART 100 UNITS/ML 3 ML PEN SC SCH ×4 (08:42→20:37)
[2019-11-03] MEDS: INSULIN GLARGINE SOLOSTAR 100 UNITS/ML 3 ML PEN SC SCH (10:00)
--- NOTE | 2019-11-03 11:33 | Orthopedic Progress Note ---
Date of Service November 03, 2019 Assessment & Plan (1) Neurogenic claudication due to lumbar spinal stenosis: This time we will continue physical therapy monitor her ESCOBAR output anticipate discharge home tomorrow. Present on Admission?: Yes Admission and Anticipated Discharge Date Admission Date: November 01, 2019 Subjective Back pain controlled leg symptoms improved Physical Exam Physical Exam: Patient is good strength testing appears comfortable. Results & Data ([facility]) Vital Signs (Past 12 Hours) Vital Signs Temp Pulse Resp BP BP Pulse Ox 11/03/19 08:45 85 113/69 11/03/19 07:42 36.9 C 83 16 100/63 96 11/03/19 03:11 37.0 C 82 16 123/74 94 11/02/19 23:29 36.8 C 82 16 121/72 94
--- NOTE | 2019-11-03 12:06 | Hospitalist Progress Note ---
Date of Service November 03, 2019 Assessment & Plan (1) Hypotension: Postoperative hypotension, persistent. Continue to hold irbesartan, HCTZ, and Norvasc. Coreg continued with holding parameters. Cont close monitoring of BP and plan for IVF bolus as needed if SBP<80 or if symptomatic, which is not currently the case (2) Anemia: Post-operative acute blood loss anemia. No need for transfusion at this point as patient is not symptomatic and blood count is roughly stable to yesterday. Would repeat CBC as outpatient in the next several weeks. (3) Neurogenic claudication due to lumbar spinal stenosis: - POD#2 L4-S1 decompression and fusion by Dr. Booth - activity and wound care orders as per ortho - pain control with bowel regimen - PT/OT (4) Atrial fibrillation: Cont Coreg for now. Apixaban on hold until cleared by orthopedic surgeon to restart post-operatively (5) DM type 2 (diabetes mellitus, type 2): at goal, cont Novolog with carb coverage post-operatively with plan to transition back to oral agents on discharge. Lantus was added this morning once daily with good improvement in the blood sugar numbers. (6) CAD (coronary artery disease): -Continue aspirin (cleared by spine orthopedics), statin, beta-saima, nitrate, Ranexa. ARB on hold as above. (7) Sleep apnea: -CPAP qHS (8) DVT prophylaxis: -Teds/SCDs as per spine orthopedics, apixaban to be restarted once cleared by orthopedics. Full Code Dispo-per Ortho Thank you for this consultation. We will follow the patient with you during their hospital stay. You can reach a member of the [facility] Hospitalist Team 20/03 via pager @ [phone]. Kelli Marquez DO [facility] Hospitalist Admission and Anticipated Discharge Date Admission Date: November 01, 2019 Anticipated date of discharge: 11/04/19 Subjective Patient is doing well, reports resolution of itching. Ambulating with walker. Pain is well managed. Review of Systems Review of Systems: All systems reviewed & are unremarkable except as noted in Subjective Physical Exam Physical Exam: CONSTITUTIONAL: obese, vitals as above, generally well- appearing EYES: normal conjunctivae, no scleral icterus ENT: external ear and nose normal, MMM RESPIRATORY: clear to auscultation bilaterally, no crackles, rales or wheezes, normal respiratory effort CARDIOVASCULAR: regular rate and rhythm, S1 and 2 heard without murmurs, gallops or rubs, no JVD, no peripheral edema GASTROINTESTINAL: soft, nontender, nondistended MUSCULOSKELETAL: strength 5/5 throughout, head is normocephalic and atraumatic SKIN: warm and dry, no rashes NEUROLOGIC: CN 2-12 grossly intact, no sensory deficit, normal cognition, no gross focal deficits. PSYCHIATRIC: alert cooperative and oriented Results & Data ([facility]) Vital Signs (Past 12 Hours) Vital Signs Temp Pulse Resp BP BP Pulse Ox 11/03/19 08:45 85 113/69 11/03/19 07:42 36.9 C 83 16 100/63 96 11/03/19 03:11 37.0 C 82 16 123/74 94 11/02/19 23:29 36.8 C 82 16 121/72 94 Laboratory Results Short CBC 11/03/19 Range/Units 05:29 WBC 12.87 H (4.8-10.8) K/uL Hgb 8.5 L (12.0-16.0) g/dL Hct 26.8 L (37-47) % Plt Count 302 (130-400) K/uL BMP 11/03/19 05:29 Sodium 135 L Potassium 3.6 D Chloride 102 Carbon Dioxide 27 BUN 17 Creatinine 1.24 H Glucose 173 H Calcium 8.7 Medications Administered Current Inpatient Medications Acetaminophen (Tylenol) 1,000 mg PO Q8H PRN PRN Reason: MILD Pain Scale 1,2,3 & Pre PT Stop: 12/01/19 12:11 Last Admin: 11/02/19 17:11 Dose: 1,000 mg Documented by: Al Hydrox/Mg Hydrox/Simethicone (Maalox) 30 ml PO Q6H PRN PRN Reason: Dyspepsia Stop: 12/01/19 12:11 Amlodipine Besylate (Norvasc) 2.5 mg PO [facility] Stop: 12/02/19 08:59 Last Admin: 11/02/19 09:08 Dose: 2.5 mg Documented by: Aspirin (Ecotrin) 325 mg PO [facility] Stop: 12/01/19 20:59 Last Admin: 11/02/19 21:21 Dose: 325 mg Documented by: Atorvastatin Calcium (Lipitor) 40 mg PO [facility] Stop: 12/02/19 08:59 Last Admin: 11/03/19 08:38 Dose: 40 mg Documented by: Bisacodyl (Dulcolax) 10 mg [facility] DAILY PRN PRN Reason: Constipation Stop: 12/01/19 12:11 Bupropion HCl (Wellbutrin-Xl) 150 mg PO QAM [facility] Stop: 12/02/19 08:59 Last Admin: 11/03/19 08:38 Dose: 150 mg Documented by: Carvedilol (Coreg) 3.125 mg PO BID [facility] Stop: 12/02/19 08:59 Last Admin: 11/03/19 08:37 Dose: 3.125 mg Documented by: Dextrose (Dextrose 50%) 25 - 50 ml IV UD PRN; Protocol PRN Reason: Hypoglycemia Protocol Stop: 12/01/19 13:36 Diphenhydramine HCl (Benadryl Capsule) 25 mg PO Q6H PRN PRN Reason: itching Stop: 12/02/19 11:29 Last Admin: 11/02/19 11:32 Dose: 25 mg Documented by: Famotidine (Pepcid) 20 mg PO Q12H PRN PRN Reason: Dyspepsia Stop: 12/01/19 12:11 Glucagon (Glucagen) 1 mg SQ UD PRN; Protocol PRN Reason: Hypoglycemia Protocol Stop: 12/01/19 13:36 Glucose (Dex4 Glucose) 4 - 8 tabs PO UD PRN; Protocol PRN Reason: Hypoglycemia Protocol Stop: 12/01/19 13:36 Glucose (Glucose 40%) 15 - 30 gm PO UD PRN; Protocol PRN Reason: Hypoglycemia Protocol Stop: 12/01/19 13:36 Hydrochlorothiazide (Hctz) 12.5 mg PO DAILY [facility] Stop: 12/02/19 08:59 Last Admin: 11/02/19 09:07 Dose: 12.5 mg Documented by: Hydromorphone HCl (Dilaudid) 0.5 mg IV Q3H PRN PRN Reason: MOD pain (scale 4-6) & Pre PT Stop: 11/15/19 12:11 Hydromorphone HCl (Dilaudid) 1 mg IV Q3H PRN PRN Reason: severe pain (scale 7-10) Stop: 11/15/19 12:11 Hydroxyzine HCl (Vistaril) 25 mg PO Q8H PRN PRN Reason: Anxiety Stop: 12/01/19 12:11 Lorazepam (Ativan) 0.5 mg in 1 mls @ 0.5 mls/min IV Q8H PRN PRN Reason: Sedation/Anxiety Stop: 12/01/19 12:11 Promethazine HCl 12.5 mg/ (Sodium Chloride) 50.5 mls @ 204 mls/hr IV Q6H PRN PRN Reason: Nausea &/or Vomiting Stop: 12/01/19 12:11 Influenza Virus Vaccine Quadrival (Flu Vaccine, Do Not Administer) 1 ea N/A PRN PRN PRN Reason: Notification Stop: 12/01/19 12:11 Insulin Aspart (Novolog Flexpen) 0 units SC A[facility]S [facility] Stop: 12/01/19 16:29 Last Admin: 11/03/19 08:42 Dose: 6 units Documented by: Insulin Glargine (Lantus Solostar Pen) 20 units SC DAILY [facility] Stop: 12/03/19 09:19 Last Admin: 11/03/19 10:00 Dose: 20 units Documented by: Irbesartan (Avapro) 150 mg PO QAM [facility] Stop: 12/02/19 08:59 Last Admin: 11/02/19 09:08 Dose: 150 mg Documented by: Isosorbide Mononitrate (Imdur Extended Rel) 30 mg PO QAM [facility] Stop: 12/02/19 08:59 Last Admin: 11/03/19 08:38 Dose: 30 mg Documented by: Lorazepam (Ativan) 0.5 mg PO Q8H PRN PRN Reason: Sedation/Anxiety Stop: 12/01/19 12:11 Last Admin: 11/02/19 14:04 Dose: 0.5 mg Documented by: Magnesium Hydroxide (Milk Of Magnesia) 30 ml PO DAILY PRN PRN Reason: Constipation Stop: 12/01/19 12:11 Metoclopramide HCl (Reglan) 10 mg IV Q6H PRN PRN Reason: Nausea &/or Vomiting Stop: 12/01/19 12:11 Miscellaneous (Carbohydrates For Hypoglycemia) 15 - 30 gm PO UD PRN PRN Reason: Hypoglycemia Protocol Stop: 12/01/19 13:36 Naloxone HCl (Narcan) 0.1 mg IV Q5M PRN; Protocol PRN Reason: Oversedation/Resp Depression Stop: 12/01/19 12:11 Ondansetron HCl (Zofran) 4 mg IV Q6H PRN PRN Reason: Nausea &/or Vomiting Stop: 12/01/19 12:11 Last Admin: 11/01/19 13:37 Dose: 4 mg Documented by: Ondansetron HCl (Zofran Odt) 4 mg PO Q6H PRN PRN Reason: Nausea Stop: 12/01/19 12:11 Oxycodone HCl (Roxicodone Immediate Rel) 5 - 10 mg PO Q4H PRN PRN Reason: Moderate-Severe Pain & Pre PT Stop: 11/15/19 12:11 Last Admin: 11/03/19 09:54 Dose: 10 mg Documented by: Pantoprazole Sodium (Protonix) 40 mg PO QPM [facility] Stop: 12/01/19 20:59 Last Admin: 11/02/19 21:21 Dose: 40 mg Documented by: Pneumococcal Polyvalent Vaccine (Pneumococcal Vacc, Do Not Administer) 1 ea N/A PRN PRN PRN Reason: Notification Stop: 12/01/19 12:11 Polyethylene Glycol (Miralax Powder Packet) 17 gm PO Q6 [facility] Stop: 12/02/19 05:59 Last Admin: 11/03/19 05:24 Dose: 17 gm Documented by: Ranolazine (Ranexa) 500 mg PO BID [facility] Stop: 12/01/19 20:59 Last Admin: 11/03/19 08:37 Dose: 500 mg Documented by: Senna/Docusate Sodium (Senokot S) 2 tab PO HS [facility] Stop: 12/01/19 20:59 Last Admin: 11/02/19 17:20 Dose: 2 tab Documented by: Sodium Biphosphate/Sodium Phosphate (Fleet Enema) 132 ml [facility] ONE PRN PRN Reason: Constipation Stop: 12/01/19 12:11 Tramadol HCl (Ultram) 50 - 100 mg PO Q4H PRN PRN Reason: Moderate-Severe Pain & Pre PT Stop: 12/01/19 12:11 Last Admin: 11/02/19 21:21 Dose: 100 mg Documented by:
[2019-11-03] MEDS: LORazepam 0.5 MG TAB PO PRN (12:42)
[2019-11-03] MEDS: PANTOprazole 40 MG TAB PO SCH (20:15)
[2019-11-03] MEDS: ASPIRIN 325 MG ECTAB PO SCH (20:15)
[2019-11-03] MEDS: DOCUSATE SODIUM/SENNA 50/8.6MG TAB PO SCH (20:15)
[2019-11-03] MEDS: TRAMADOL HCL 50 MG TABLET PO PRN (23:50)
[2019-11-04] MEDS: POLYETHYLENE (MIRALAX) 17 GM PACK PO SCH (06:20)
--- NOTE | 2019-11-04 07:43 | Anesthesiology Progress Note ---
Date of Service November 04, 2019 Anesthesia Post Procedure Vital Signs Vital Signs: Temp Pulse Pulse Resp BP BP Pulse Ox 11/04/19 07:20 36.7 C 79 17 126/66 92 11/04/19 04:10 95 H 101/58 L 11/03/19 23:05 37.1 C 82 16 117/69 91 11/03/19 19:00 99 H 15 112/58 L 93 11/03/19 15:30 36.8 C 82 14 93/57 L 90 11/03/19 08:45 85 113/69 Pain Intensity Lower Back: Pain Intensity: 5 Notes Mental Status: alert / awake / arousable and participated in evaluation Patient Amnestic to Procedure: Yes Nausea / Vomiting: adequately controlled Pain: adequately controlled Airway Patency, RR, SpO2: stable & adequate BP & HR: stable & adequate Hydration State: stable & adequate Anesthetic Complications: no major complications apparent
--- NOTE | 2019-11-04 08:26 | Hospitalist Progress Note ---
Date of Service November 04, 2019 Assessment & Plan (1) Hypotension: Postoperative hypotension, resolved. Irbesartan, HCTZ, Norvasc and Coreg on DC (2) Anemia: Post-operative acute blood loss anemia. No need for transfusion. Repeat CBC in 1 week (3) Neurogenic claudication due to lumbar spinal stenosis: - POD#3 L4-S1 decompression and fusion by Dr. Booth - activity and wound care orders as per ortho - pain control with bowel regimen - PT/OT, DC home when OK c Ortho (4) Atrial fibrillation: Cont Coreg for now. Apixaban on hold until cleared by orthopedic surgeon to restart post-operatively (5) DM type 2 (diabetes mellitus, type 2): DC home on home regimen (6) CAD (coronary artery disease): -Continue aspirin (cleared by spine orthopedics), statin, beta-saima, nitrate, Ranexa. ARB on DC (7) Sleep apnea: -CPAP qHS (8) DVT prophylaxis: -Teds/SCDs as per spine orthopedics, apixaban to be restarted once cleared by orthopedics. Full Code Dispo-per Ortho ROS-No Headache, No Visual Changes, No Nausea, No Vomiting, No Fever, No Chills, No Neck Pain or Stiffness, No Chest Pain, No Palpitations, No SOB, No MEDRANO, No Cough, No Sputum, No Wheezing, No Abdominal Pain, No Diarrhea, No Hematemesis, No Hemoptysis, No Unexpected Weight Loss, No Flank pain, No Melena, No Hematochezia, No Frequency, No Urgency, No Burning, No Hematuria, No Rashes, No Diaphoresis. Appetite is Normal, Sore Back Physical Exam Gen-AAO x 3, NAD, Afebrile, Drain in place Head-NCAT, EOMI, PERRLA, Anicteric Sclera, No Posterior Pharyngeal Erythema Neck-Supple, No JVD, No Thyromegaly, No Masses, No LAD, No Bruits Lungs-Clear to Auscultation Bilaterally, No Rales, No Rhonchi, No Wheezing, No Crepitus Chest-No S4, +S1, +S2, No S3, No Murmurs, No Rubs, No Gallops, No Ectopy Abdomen-Soft, Bowel Sounds Present, Non Tender, Non Distended, No Hepatomegaly, No Splenomegaly, No Palpable Masses, No Rebound, No Rigidity, No Guarding Musculoskeletal-Full Range of Motion Bilaterally, No CVAT Extremities-No Cyanosis, No Clubbing, No Edema Nuero-Cranial Nerves II-XII grossly intact, Motor WNL, DTRs WNL, Strength WNL, Non Focal Psych-Normal Mood Admission and Anticipated Discharge Date Admission Date: November 01, 2019 Anticipated date of discharge: 11/04/19 Results & Data ([facility]) Vital Signs (Past 12 Hours) Vital Signs Temp Pulse Pulse Resp BP Pulse Ox 11/04/19 07:20 36.7 C 79 17 126/66 92 11/04/19 04:10 95 H 101/58 L 11/03/19 23:05 37.1 C 82 16 117/69 91
[2019-11-04] MEDS: carvediloL 3.125 MG TAB PO SCH (08:37)
[2019-11-04] MEDS: ISOSORBIDE MONO EXTENDED REL 30 MG TABCR PO SCH (08:37)
[2019-11-04] MEDS: RANOLAZINE 500 MG ER TAB PO SCH (08:38)
[2019-11-04] MEDS: BuPROPion XL 150 MG TABCR PO SCH (08:38)
[2019-11-04] MEDS: ATORVASTATIN 40 MG TAB PO SCH (08:38)
[2019-11-04] MEDS: INSULIN ASPART 100 UNITS/ML 3 ML PEN SC SCH (08:42)
[2019-11-04] MEDS: INSULIN GLARGINE SOLOSTAR 100 UNITS/ML 3 ML PEN SC SCH (08:45)
[2019-11-04] MEDS: TRAMADOL HCL 50 MG TABLET PO PRN (08:57)
--- NOTE | 2019-11-04 12:07 | Discharge Summary ---
Date of Service November 04, 2019 Admission HPI Per Admitting Provider This is a 74-year-old female presents with chronic persistent back and bilateral leg pain. After failing extensive course of nonoperative care she is here for surgical invention. Principal Diagnosis Lumbar spinal stenosis with neurogenic claudication Discharge Data Allergies Allergy/AdvReac Type Severity Reaction Status Date / Time paroxetine [From Paxil] Allergy Unknown TREMORS Verified 11/01/19 06:38 Consultations 11/01/19 12:12 Consult Case Management - Discharge Planning Routine Consult Hospitalist Routine Procedures Performed Operation Date: 11/01/19 07:45 Actual Procedures p L4-S1 Decompression and Fusion, Spinal Cord Monitoring(Not Applicable) - Tavon Booth DO Ordered Studies 11/01/19 07:45 FL fluoroscopy <1hr Routine FL lumbar spine 2-3V Routine Hospital Course (1) Neurogenic claudication due to lumbar spinal stenosis: Patient underwent lumbar decompression fusion tolerated well second orthopedic for postoperative. Postop day 1 she was up and ambulating progressed to postop day 2 on postop day #3 ESCOBAR drainage decreasing appropriately. Pain well controlled. Excellent strength testing. Subsequently discharged home. Discharge orders and instructions from the chart for further view. Total Time Total Time Spent Total Time Spent (In Minutes): 20 minutes Discharge Plan Discharge Items Patient Disposition: Home - Self-Care Reason For Visit: LUMBAR SPINAL STENOSIS W NEUROGENIC CLAUDICATION Discharge Diagnosis: Lumbar spinal stenosis with neurogenic claudication Activity: As commented below Non-emergency contact: Primary Care Provider Call non-emergency contact if: you have any medication questions Follow-up/Referrals: Jessica Gaming MD [Primary Care Provider] - Diet: Regular Addtl Attending Provider Instructions: ACTIVITY RECOMMENDATIONS: SELF CARE INSTRUCTIONS AFTER THORACIC/LUMBAR FUSIONS 1. You may walk to your tolerance. It is good exercise for your legs and back. Expect some back and intermittent leg aches and pains. 2. You may perform "counter-top" level activities (make a sandwich, lluvia with a project, etc.). 3. No bending or lifting of more than 10 pounds or back twisting of any nature (roll like a log when turning in bed). 4. You may ride in a car for 20-30 minutes at a time. No driving until after your first visit with your doctor. 5. Frequent changes of position and restricting sitting to 30 minutes at a time will help limit the amount of back spasms and stiffness you may experience. 6. You may discontinue the use of ambulatory aids (cane, crutches, etc.) once your strength and confidence allow. 7. You may transit planning director the shower and let water strike your incision when you arrive home at least once daily. Do not take a tub bath, sit in a hot tub or go into a swimming pool until after your first recheck in the office. SPECIAL CARE INSTRUCTIONS: VERY IMPORTANT TO READ AND REVIEW A. Your surgical incision has been closed with a cosmetic suture under the skin that will dissolve in about 6 weeks. In 14 days, you can use a pair of clean scissors and cut the suture that is left outside of the skin at the ends of your incision. 1. The small skin tapes can be removed 7 days after surgery if they have not fallen off by that point. 2. You may keep the wound open to air as much as possible to promote healing after post-op day number 5 unless told otherwise by your doctor. 3. If you think the wound looks like it is becoming infected (redness or worsening drainage) and/or you are experiencing fever, chill or worsening back pain and muscle spasms, contact the office so that we may evaluate you as soon as possible. B. Complications are uncommon, but please contact us if you have any signs or symptoms of: 1. wound infection (fever higher than 102.5 degrees F, redness, separation of wound, drainage, or increasing pain from the incision) 2. blood clots in legs (pain, swelling, redness and warmth in legs) 3. urinary tract infection (fever higher than 102.5 degrees F, burning upon urination or increased frequency of urination) 4. nerve problems (inability to walk on your toes or heels, numbness, loss of bowel or bladder control) 5. any other symptoms that concern you C. Please call the office at if you have any concerns or questions about your operation or recovery. D. No smoking! Smoking drastically decreases the chance of a solid fusion. E. Do not take any anti-inflammatory medications (Indocin, Advil, Motrin, Asp irin, Naprosyn, etc.) as these may inhibit the chance of a solid fusion. Tylenol is okay to take for pain. MANAGING PAIN AFTER SPINAL SURGERY 1. Narcotic medication is intended for short-term use and will be provided for surgical pain. Surgical pain usually lasts for a period of 4-6 weeks. Narcotic medication includes Percocet, Vicodin, Darvocet, Tylenol #3 or Lortab. 2. Longer-term pain is more appropriately treated with non-narcotic medication such as Tylenol ES. 3. Muscle spasm is not appropriately treated with narcotics. Muscle relaxers such as Soma, Flexeril or Skelaxin can be used along with Tylenol ES. 4. Remember that we all live with some "aches and pains". This is not unusual or uncommon after an injury or as we get older. a. Back pain is expected and may include muscle spasms for 4 to 6 weeks after surgery. The pain should gradually improve. If the pain worsens for no apparent reason, please contact the office. b. Intermittent leg pain may also be experienced and should not be concerned about unless it worsens for no apparent reason. If so, please contact the office. 5. We will provide appropriate medication within the normal guidelines of their prescribed use. We will also be very cautious and aware of potential abuse and extended duration of patients' medication needs. a. Pain medications are for your comfort and to assist with sleep and rest so that the tissue can heal. They are not provided in order to return to normal activity and should not be used through the day. To do so or worsening pain at night can result from ongoing tissue damage and development of tolerance to the prescribed medicine. 6. Please allow 2-3 days to process refills. Prescriptions will not be mailed but must be picked up at the office. FOLLOW UP VISIT: Keep your scheduled follow-up appointment. Any questions, please call the office at . Pending Studies at Discharge: No Stand-Alone Forms: [facility], Opioid Pain Management, Smoking Cessation Medications and DC Order Prescriptions: New tramadol 50 mg tablet 50 mg PO Q6H PRN (Reason: pain, moderate) Qty: 30 RF: 0 oxycodone 5 mg tablet 5 mg PO Q6H PRN (Reason: pain, severe) Qty: 20 RF: 0 tramadol 50 mg tablet 50 mg PO Q6H PRN (Reason: pain, moderate) Qty: 30 RF: 0 oxycodone 5 mg tablet 5 mg PO Q6H PRN (Reason: pain, severe) Qty: 30 RF: 0 Continued atorvastatin [Lipitor] 40 mg Tablet 40 mg PO QAM RF: 0 aspirin 325 mg Tablet 325 mg PO HS RF: 0 isosorbide mononitrate 30 mg Tablet Extended Release 24 Hr 30 mg PO QAM RF: 0 glipizide [Glucotrol XL] 5 mg Tablet Extended Release 24hr 5 mg PO QAM RF: 0 amlodipine [Norvasc] 10 mg Tablet 25 mg PO QAM RF: 0 metformin 1,000 mg Tablet 1,000 mg PO BID RF: 0 esomeprazole magnesium [Nexium] 40 mg Capsule,Delayed Release(Dr/Ec) 40 mg PO QPM RF: 0 lorazepam 1 mg Tablet 0.5 mg PO UD PRN (Reason: Anxiety) RF: 0 valsartan-hydrochlorothiazide [Diovan HCT] 160-25 mg Tablet 1 tab PO QAM RF: 0 bupropion HCl [Wellbutrin XL] 150 mg Tablet Extended Release 24 Hr 150 mg PO QAM RF: 0 Januvia 100 mg Tablet 100 mg PO QAM RF: 0 carvedilol phosphate [Coreg CR] 10 mg Capsule, Er Multiphase 24 Hr 10 mg PO QAM RF: 0 Eliquis 5 mg Tablet 5 mg PO BID RF: 0 ranolazine [Ranexa] 500 mg Tablet Extended Release 12 Hr 500 mg PO BID RF: 0 Discharge Orders: Discharge Order (Routine); Ordered 11/04/19 Ordered By: Tavon Booth Admission Data Admit Date/Time: 11/01/19 11:16 Attending Provider: Tavon Booth Admit Provider: Tavon Booth Primary Care Provider: Jessica Gaming Other Providers: Robin Lam Other Interventions: Discharge Summary Assessment (RN) Last Done: 11/04/19 11:17
== END 2019-11-04 12:13 | disposition home or self-care (01) | DRG 454 ==
LOC: ASU 05:47 → 3E 11:16